=== PATIENT | male | born 1965 | race Caucasian/White ===

== ENCOUNTER 2022-08-31 21:23 | Day surgery (SDC) | payer MEDICAID ==
[2022-08-31] MEDS ORDERED: Sodium Chloride 0.9% 10 ML Syringe FLUSH PRN (21:32)
[2022-08-31] MEDS ORDERED: Ondansetron 4 MG/2 ML SDV IVPUSH ONE (21:34)
[2022-08-31] MEDS ORDERED: HYDROmorphone 1 MG/ML Syringe IVPUSH ONE (21:34)
[2022-08-31] MEDS ORDERED: Sodium Chloride 0.9% 1,000 ML IV SCH (21:45)
[2022-08-31] MEDS ORDERED: Lactated Ringers 1,000 ML IV SCH ×2 (22:15→23:30)
[2022-08-31 22:21] LABS: ESTIMATED GFR 80 mL/min (>60)
[2022-08-31] MEDS ORDERED: Iopamidol 612 MG/ML 100 ML Bottle IV SCH (22:30)
[2022-08-31] MEDS ORDERED: Sodium Chloride 0.9% 100 ML IV SCH (22:30)
[2022-08-31 22:38] LABS: CORONAVIRUS COVID-19 NAA NEGATIVE (NEGATIVE)
[2022-08-31] MEDS ORDERED: Ondansetron 4 MG/2 ML SDV IVPUSH PRN (23:30)
[2022-08-31] MEDS ORDERED: Scopolamine 1.5 MG Transdermal Patch TRDERM PRN (23:31)
[2022-08-31] MEDS ORDERED: Promethazine 12.5 MG in Sodium Chloride 0.9% 50 ML IV PRN (23:32)
[2022-08-31] MEDS ORDERED: diphenhydrAMINE 50 MG/ML SDV IVPUSH PRN (23:33)
[2022-08-31] MEDS: Piperacillin/Tazobactam 3.375 GM in Sodium Chloride 0.9% 50 ML IV SCH (23:46)
[2022-08-31] MEDS: HYDROmorphone 1 MG/ML Syringe IVPUSH PRN (23:46)
[2022-08-31] MEDS: Sodium Chloride 0.9% 1,000 ML IV SCH (23:49)
[2022-09-01] MEDS: HYDROmorphone 1 MG/ML Syringe IVPUSH PRN ×4 (01:49→11:10)
[2022-09-01] MEDS: Piperacillin/Tazobactam 3.375 GM in Sodium Chloride 0.9% 50 ML IV SCH ×2 (05:40→05:41)
[2022-09-01] MEDS ORDERED: Bupivacaine 0.5%/EPINEPHrine 1:200,000 50 ML MDV ONE (06:46)
[2022-09-01] MEDS ORDERED: fentaNYL 250 MCG/5 ML SDV ONE (07:43)
[2022-09-01] MEDS ORDERED: Glycopyrrolate 0.2 MG/ML 5 ML MDV ONE (07:44)
[2022-09-01] MEDS ORDERED: Succinylcholine 200 MG/10 ML MDV ONE (07:44)
[2022-09-01] MEDS ORDERED: Rocuronium 50 MG/5 ML Vial ONE (07:44)
[2022-09-01] MEDS ORDERED: Propofol 200 MG/20 ML SDV ONE (07:44)
[2022-09-01] MEDS ORDERED: Dexamethasone 4 MG/ML SDV ONE (07:44)
[2022-09-01] MEDS ORDERED: Neostigmine Methylsulfate 1 MG/ML 5 ML Syringe ONE (07:44)
[2022-09-01] MEDS ORDERED: Ondansetron 4 MG/2 ML SDV ONE (07:44)
[2022-09-01] MEDS: Sodium Chloride 0.9% 1,000 ML IV SCH (11:11)
[2022-09-01] MEDS: Lisinopril 20 MG Tab PO SCH (11:16)
[2022-09-01] MEDS: amLODIPine 5 MG Tab PO SCH (11:16)
[2022-09-01] MEDS: Piperacillin/Tazobactam/Dext 3.375 GM in Premix Bag 1 BAG IV SCH ×2 (11:48→17:31)
[2022-09-01] MEDS: Acetaminophen/HYDROcodone 325-5 MG Tab PO PRN ×2 (13:31→19:40)
[2022-09-02] MEDS: Piperacillin/Tazobactam/Dext 3.375 GM in Premix Bag 1 BAG IV SCH ×3 (00:06→11:12)
[2022-09-02] MEDS ORDERED: Benzocaine/Cetylpyridinium/Menthol Lozenge MUCMEM PRN (01:04)
[2022-09-02] MEDS: Acetaminophen/HYDROcodone 325-5 MG Tab PO PRN ×2 (01:39→09:16)
[2022-09-02] MEDS: Lisinopril 20 MG Tab PO SCH (09:17)
[2022-09-02] MEDS: amLODIPine 5 MG Tab PO SCH (09:17)
== END 2022-09-02 12:45 | disposition home or self-care (01) ==
LOC: JP.ED 21:23 → JP.SDS 09-01 06:21 → JP.MS 09-01 10:32 → UNDOADMOB 09-01 10:32 → UNDODISOB 09-02 12:45 → JP.SDS 09-02 12:45
PROVIDERS: ATTEND Surgery
DX: K35.20 Acute appendicitis with generalized peritonitis, without abscess (principal); I10 Essential (primary) hypertension; K21.9 Gastro-esophageal reflux disease without esophagitis; G47.33 Obstructive sleep apnea (adult) (pediatric); E66.01 Morbid (severe) obesity due to excess calories; Z68.41 Body mass index [BMI] 40.0-44.9, adult
CPT/HCPCS: 0241U; 36415; 44970; 74177; 80048; 80053; 83605; 85025; 85027; 86140; 87070; 87075; 87077; 87186; 87205; 88302; 93005; 93010; 96361; 96374; 96375; 96376; 99284; 99285; A9270; J0171; J0330; J1100; J1170; J2405; J2543; J2704; J2710; J2795; J3010; J3490; J7030; J7120; Q9967